=== PATIENT | male | born 1930 | race Caucasian/White ===

== ENCOUNTER 2017-09-28 09:59 | Inpatient (IN) | payer OTHER, BC ==
[~2017-09-28] VITALS: Ht 175.3 cm; Wt 111.9 kg
--- NOTE | ~2017-09-28 | EKG ---
[place] [address] [facility] [place] [address] ELECTROCARDIOGRAM REPORT Name: MELA MORGAN Room #: 218-P ADM IN M.R.#: [id number] Admission: 09/28/17 Attend Phys: Haile Kurtz MD, Discharge: Date of : 32 Report #: [id number] THIS REPORT FOR: //name// [facility] ED Test Date: 2017-09-28 Test Time: 11:06:08 Pat Name: MELA MORGAN Department: Room: 218 Gender: M Collaborating Supervising Physician: Leslie CHAMPION : 1930 Requested By: Owen Chow Order Number: [id number] MD: Abimael Marsh Measurements Intervals [place] Rate: 69 P: 38 SD: 208 QRS: 11 QRSD: 96 T: 42 QT: 443 QTc: 475 Interpretive Statements Sinus rhythm Borderline T abnormalities, lateral leads Baseline wander in lead(s) V5 Compared to ECG 08/03/2009 10:25:44 T-wave abnormality now present Electronically Signed On 09-29-2017 12:57:29 CDT by Abimael Marsh [email or web address] <ELECTRONICALLY SIGNED> By: Abimael Marsh MD, [facility] 09/29/17 1257 1106 1106 Abimael Marsh MD, [facility] /EPI
--- NOTE | ~2017-09-28 | 2DMMODE ---
[facility] [address] [place] [address] 2 D/M-MODE ECHOCARDIOGRAM Name: MELA MORGAN Room #: 218-P ADM IN M.R.#: [id number] Admission: 09/28/17 Attend Phys: Haile Kurtz, Discharge: Date of : 32 Date of Service: 09/30/17 1042 Report #: [id number] THIS REPORT FOR: //name// APPROVED REPORT Study performed: 09/30/2017 08:01:35 EXAM: Comprehensive 2D, Doppler, and color-flow Echocardiogram Patient Location: Bedside Room #: 218 Status: routine BSA: 2.26 HR: 74 bpm BP: 132/56 mmHg Other Information Study Quality: Adequate Technically limited study due to body habitus. Indications Congestive Heart Failure Diabetes Dyspnea CAD Hypertension/HDD Echo Enhancing Agent Agent(s) / Amount(s) Used: Optison 3 cc 2D Dimensions RVDd: 42.43 mm LVEF(%): 65.14 (>50%) IVSd: 18.10 (7-11mm) LVOT Diam: 20.01 (18-24mm) LVDd: 44.60 mm PWd: 15.54 (7-11mm) Ascending Ao: 35.24 (22-36mm) LVDs: 28.76 (25-40mm) Aortic Root: 35.95 mm IVC: 25.00 mm Zapata's LVEF: 65.14 % Volumes Left Atrial Volume (Systole) Single Plane 4CH: 78.15 mL Single Plane 2CH: 100.44 mL LA ESV Index: 45.00 mL/m2 Aortic Valve [facility] [address] [place] [address] 2 D/M-MODE ECHOCARDIOGRAM Name: MELA MORGAN Room #: 218-P [facility] IN M.R.#: [id number] Admission: 09/28/17 Attend Phys: Haile Kurtz, Discharge: Date of : 32 Date of Service: 09/30/17 1042 Report #: [id number] AoV Peak Lino.: 4.37 m/s AO Peak Gr.: 76.45 mmHg LVOT Max P.89 mmHg AO Mean Gr.: 44.45 mmHg LVOT Mean P.37 mmHg AO V2 Mean: 3.14 m/s LVOT Max V: 1.11 m/s AO V2 VTI: 107.73 cm LVOT Mean V: 0.69 m/s MILIND (VTI): 0.81 cm2 LVOT V1 VTI: 27.67 cm MILIND Vmax: 0.79 cm2 SV (LVOT): 86.96 mL Mitral Valve MV Peak Gr.: 15.16 mmHg MV Mean Gr.: 4.72 mmHg E/A Ratio: 1.0 MV Decel. Time: 305.54 ms MV E Max Lino.: 1.67 m/s MV A Lino.: 1.60 m/s MV Max Lino.: 1.95 m/s MV Mean Lino.: 0.96 m/s MV VTI: 618.78 mm MVA VTI: 140.53 mm2 MV PHT: 88.61 ms MVA (PHT): 2.18 cm2 Pulmonary Valve PV Peak Lino.: 0.96 m/s PV Peak Gr.: 3.71 mmHg Pulmonary Vein P Vein S: 0.55 m/s P Vein A: 0.23 m/s P Vein D: 0.44 m/s P Vein A Dur.: 114.2 msec P Vein S/D Ratio: 1.25 Tricuspid Valve RAP Estimate: 10.00 mmHg Left Ventricle The left ventricle is normal size. Moderate to severe concentric left ventricular hypertrophy. The left ventricular systolic function is normal. The left ventricular ejection fraction is within the normal range. LVEF is 60-65%. Moderate diastolic dysfunction is present (pseudonormal filling). Right Ventricle Right ventricle is at the upper limits of normal. The right ventricular systolic function is normal. Atria Left atrium is dilated. The right atrium size is normal. [facility] [address] [place] [address] 2 D/M-MODE ECHOCARDIOGRAM Name: MELA MORGAN Room #: 218-P [facility] IN M.R.#: [id number] Admission: 09/28/17 Attend Phys: Haile Kurtz, Discharge: Date of : 32 Date of Service: 09/30/17 1042 Report #: [id number] Aortic Valve Aortic valve is calcified. No aortic regurgitation is present. There is severe valvular aortic stenosis. Calculated aortic valve area is 0.8 cm2 with maximum pressure gradient of 76.5 mmHg and mean pressure gradient of 44.5 mmHg. Mitral Valve Moderate mitral annular calcification. Mitral valve leaflets are thickened. Mild mitral regurgitation. Mild mitral valve stenosis with a calculated mitral valve area is 2.2 cm2 with maximum pressure gradient of 15 mmHg and mean pressure gradient of 4.7 mmHg. Tricuspid Valve The tricuspid valve is normal in structure. Trace tricuspid regurgitation. Unable to assess PA pressure. Pulmonic Valve The pulmonary valve is normal in structure. Trace pulmonic regurgitation. Great Vessels The aortic root is normal in size. IVC is dilated and collapses >50% with inspiration. Pericardium There is no pericardial effusion. <Conclusion> The left ventricle is normal size. Moderate to severe concentric left ventricular hypertrophy. LVEF is 60-65%. Moderate diastolic dysfunction is present (pseudonormal filling). Right ventricle is at the upper limits of normal. Left atrium is dilated. Aortic valve is calcified. There is severe valvular aortic stenosis. Calculated aortic valve area is 0.8 cm2 with maximum pressure gradient of 76.5 mmHg and mean pressure gradient of 44.5 mmHg. Moderate mitral annular calcification. Mitral valve leaflets are thickened. Mild mitral regurgitation. Trace tricuspid regurgitation. [facility] [address] [place] [address] 2 D/M-MODE ECHOCARDIOGRAM Name: MELA MORGAN Room #: 218-P [facility] IN M.R.#: [id number] Admission: 09/28/17 Attend Phys: Haile Kurtz, Discharge: Date of : 32 Date of Service: 09/30/17 104 Report #: [id number] Unable to assess PA pressure. There is no pericardial effusion. <ELECTRONICALLY SIGNED> By: Haile Kurtz MD, FACC 09/30/17 104 41 104 Haile Kurtz MD, FACC /INF
[2017-09-28 10:00] VITALS: BP 131/77
[2017-09-28] MEDS ORDERED: CENTRUM SILVER1 EAC4 PO (10:36)
[2017-09-28] MEDS ORDERED: SYNTHROID50 MCG PO (10:36)
[2017-09-28] MEDS ORDERED: NORVASC5 MG PO (10:36)
[2017-09-28] MEDS ORDERED: POTASSIUM20 PO (10:37)
[2017-09-28] MEDS ORDERED: MAG-TAB SR84 MG PO (10:37)
[2017-09-28] MEDS ORDERED: ZINC CHELATE50 MG PO (10:37)
[2017-09-28] MEDS ORDERED: NIACIN 500 MG500 M1 PO (10:37)
[2017-09-28] MEDS ORDERED: FISH OIL 1,001000 M2 PO (10:37)
[2017-09-28] MEDS ORDERED: COREG25 MG PO (10:37)
[2017-09-28] MEDS ORDERED: LISINOPRIL20 MG PO (10:38)
[2017-09-28] MEDS ORDERED: ZOCOR20 MG PO (10:38)
[2017-09-28] MEDS ORDERED: NOVALOG IM (10:39)
[2017-09-28] MEDS ORDERED: LANTUS100 UNIT/M SUBQ (10:39)
[2017-09-28 10:45] LABS: ABSOLUTE NEUTROPHILS 5.9 thou/uL (1.4-8.2); BASOPHILS 0.8 % (0.0-2.0); EOSINOPHILS 2.5 % (0.0-3.0); HEMATOCRIT 47.5 % (42.0-52.0); HEMOGLOBIN 15.9 gm/dL (14.0-18.0); LYMPHOCYTES 20.4 % (24.0-44.0); MCH 30.2 pg (26.0-34.0); MCHC 33.4 g/dL (28.0-37.0); MCV 90.3 fL (80.0-100.0); MONOCYTES 6.3 % (1.0-8.0); PLATELET COUNT 132 thou/uL (150-400); RBC 5.27 mil/uL (4.50-6.00); RDW 15.9 % (10.5-14.5); WBC 8.4 thou/uL (4.0-11.0)
[2017-09-28 10:53] LABS: ANION GAP 7 mmol/L (7-16); BUN 17 mg/dL (7-18); CALCIUM 8.8 mg/dL (8.5-10.1); CHLORIDE 102 mmol/L (98-107); CO2 29 mmol/L (21-32); CREATININE 0.8 mg/dL (0.7-1.3); GLUCOSE 205 mg/dL (74-106); POTASSIUM 4.7 mmol/L (3.5-5.1); SODIUM 138 mmol/L (136-145)
[2017-09-28 11:02] LABS: ALBUMIN 3.5 g/dL (3.4-5.0); SGOT 27 U/L (15-37); SGPT 28 U/L (30-65); TOTAL BILIRUBIN 1.4 mg/dL (<0.1-1.0); TOTAL PROTEIN 7.3 g/dL (6.4-8.2); TROPONIN-I < 0.04 ng/mL (<0.06)
[2017-09-28 12:29] VITALS: BP 131/77
[2017-09-28 14:37] VITALS: BP 145/84
[2017-09-28 15:22] VITALS: BP 139/76
[2017-09-28 16:05] LABS: CALCIUM 8.6 mg/dL (8.5-10.1); CREATININE 0.8 mg/dL (0.7-1.3); MAGNESIUM 1.8 mg/dL (1.8-2.4); POTASSIUM 4.2 mmol/L (3.5-5.1)
[2017-09-28 19:33] VITALS: BP 149/85
[2017-09-29 00:16] VITALS: BP 97/43
[2017-09-29 04:59] VITALS: BP 145/82
[2017-09-29 09:00] VITALS: BP 137/72
[2017-09-29 11:01] LABS: HEMOGLOBIN 15.6 gm/dL (14.0-18.0); MCH 29.7 pg (26.0-34.0); MCHC 33.2 g/dL (28.0-37.0); MCV 89.3 fL (80.0-100.0); RBC 5.26 mil/uL (4.50-6.00); RDW 15.9 % (10.5-14.5); WBC 8.5 thou/uL (4.0-11.0)
[2017-09-29 11:10] LABS: CALCIUM 8.6 mg/dL (8.5-10.1); CREATININE 0.9 mg/dL (0.7-1.3)
[2017-09-29 13:52] VITALS: BP 120/72
[2017-09-29 17:30] VITALS: BP 144/82
[2017-09-29 19:17] VITALS: BP 137/73
[2017-09-30 04:31] LABS: CALCIUM 8.8 mg/dL (8.5-10.1); CREATININE 0.7 mg/dL (0.7-1.3); POTASSIUM 4.3 mmol/L (3.5-5.1)
[2017-09-30 04:50] VITALS: BP 132/56
[2017-09-30 10:42] VITALS: BP 101/56
[2017-09-30 15:49] VITALS: BP 111/65
[2017-09-30 19:35] VITALS: BP 111/65
[2017-09-30 19:49] VITALS: BP 128/66
[2017-10-01 04:17] VITALS: BP 128/76
[2017-10-01 05:49] LABS: CALCIUM 8.8 mg/dL (8.5-10.1); CREATININE 0.7 mg/dL (0.7-1.3); POTASSIUM 4.2 mmol/L (3.5-5.1)
[2017-10-01 07:00] VITALS: BP 111/56
[2017-10-01 11:38] VITALS: BP 115/67
[2017-10-01 15:54] VITALS: BP 107/54
[2017-10-01 19:47] VITALS: BP 133/67
[2017-10-02 04:32] LABS: CALCIUM 8.6 mg/dL (8.5-10.1); CREATININE 0.9 mg/dL (0.7-1.3); POTASSIUM 3.9 mmol/L (3.5-5.1)
[2017-10-02 05:04] VITALS: BP 125/63
[2017-10-02] MEDS ORDERED: DEMADEX20 MG PO (08:03)
[2017-10-02 08:04] VITALS: BP 120/61
[2017-10-02] MEDS ORDERED: LISINOPRIL20 MG PO (08:05)
[2017-10-02 10:32] VITALS: BP 111/65
[2017-10-02 11:38] VITALS: BP 129/66
[2017-10-02 11:41] VITALS: BP 111/65
== END 2017-10-02 14:00 | disposition home health service (06) | DRG 291 ==
LOC: ER 09:59 → 2N 12:13 → EROBS 12:13 → 2N 14:04 → ENTRNSPT 10-02 12:41 → EDTRNSPTSTS 10-02 12:44 → 2N 10-02 14:00
PROVIDERS: Emergency Medicine; Internal Medicine Cardiovascular Disease
PROC: B24BZZ4 Ultrasonography of Heart with Aorta, Transesophageal (ICD-10-PCS; principal; 2017-09-30)
DX: I11.0 Hypertensive heart disease with heart failure (principal); J96.21 Acute and chronic respiratory failure with hypoxia; I50.21 Acute systolic (congestive) heart failure; H40.9 Unspecified glaucoma; M19.90 Unspecified osteoarthritis, unspecified site; Z96.642 Presence of left artificial hip joint; E11.9 Type 2 diabetes mellitus without complications; E78.00 Pure hypercholesterolemia, unspecified; Z96.1 Presence of intraocular lens; I35.0 Nonrheumatic aortic (valve) stenosis; E66.9 Obesity, unspecified; Z68.36 Body mass index [BMI] 36.0-36.9, adult; Z98.42 Cataract extraction status, left eye; Z98.41 Cataract extraction status, right eye; Z90.49 Acquired absence of other specified parts of digestive tract; Z79.4 Long term (current) use of insulin; Z79.899 Other long term (current) drug therapy; Z88.5 Allergy status to narcotic agent; Z88.8 Allergy status to other drugs, medicaments and biological substances; Z91.018 Allergy to other foods; Z82.49 Family history of ischemic heart disease and other diseases of the circulatory system
CPT/HCPCS: 10194

== ENCOUNTER 2018-11-13 10:02 | Observation (INO) | payer OTHER, BC ==
[~2018-11-13] VITALS: Ht 180.3 cm; Wt 103.5 kg
[~2018-11-13 10:02] MED LIST: CENTRUM SILVER1 EAC4 PO; COREG25 MG PO; DEMADEX20 MG PO; FISH OIL 1,001000 M2 PO; LANTUS100 UNIT/M SUBQ; LISINOPRIL20 MG PO; MAG-TAB SR84 MG PO; NIACIN 500 MG500 M1 PO; NORVASC5 MG PO; NOVALOG IM; POTASSIUM20 PO; SYNTHROID50 MCG PO; ZINC CHELATE50 MG PO; ZOCOR20 MG PO
[2018-11-13 10:48] VITALS: BP 144/72
[2018-11-13] MEDS ORDERED: FISH OIL 1,001000 M2 PO (11:15)
[2018-11-13] MEDS ORDERED: XALATAN2.5 ML OPHTHALMIC (11:16)
[2018-11-13] MEDS ORDERED: TIMOLOL GL0.5 %/5 M1 OPHTHALMIC (11:17)
[2018-11-13 14:00] VITALS: BP 153/118
--- NOTE | 2018-11-13 16:15 | EKG ---
[address] [address] ELECTROCARDIOGRAM REPORT Name: MELA MORGAN Room #: 218-P [facility] M.R.#: [id number] ������������������ Admission: 11/13/18 ������������������ Attend Phys: Haile Kurtz MD, Discharge: ������������������ Date of : 32 Report #: [id number] ����������������������������������������������������������������� [id number] THIS REPORT FOR: //name// [facility] Test Date: 2018-11-13 Test Time: 10:44:06 Pat Name: MELA MORGAN Department: Room: 218 Gender: M Information Clerk Brokerage: PASTORA : 1930 Requested By: Haile Kurtz Order Number: [id number] MD: Ahmet Uribe Measurements Intervals [place] Rate: 76 P: 5 RI: 229 QRS: -8 QRSD: 105 T: 37 QT: 439 QTc: 494 Interpretive Statements Sinus rhythm Prolonged RI interval Probable left ventricular hypertrophy Inferior infarct, old Compared to ECG 09/28/2017 11:06:08 First degree AV block now present Myocardial infarct finding now present T-wave abnormality no longer present Electronically Signed On 11-13-2018 16:15:06 CDT by Ahmet Uribe [email or web address] ��������������������������������������������� <ELECTRONICALLY SIGNED> ���������������������������������������� By: Ahmet Uribe MD ��������������������������������������������� 11/13/18 1615 1044 1044 Ahmet Uribe MD /EPI
--- NOTE | 2018-11-13 17:14 | CATHLAB ---
[facility] [employer] [place] [address] INVASIVE PROCEDURE REPORT Name: LAURA MORGANRYAN Lester Room #: 218-P [facility] IN [facility]#: [id number] ������������� Admission: 11/13/18 ������������� Attend Phys: Haile Kurtz, Discharge: ��� ������������� ��� Date of : 34 Date of Service: 11/13/18 1714 �� Report #: [id number] �������� ��������������������������������������������[id number] THIS REPORT FOR: //name// APPROVED REPORT Study performed: 11/13/2018 12:27:11 Patient Details The patient is a 88 year-old male Event Personnel Haile Kurzt White Lead Filterer, Arron Fabian RN, Miguelina Suresh, Patricia Mccoy Monitor Procedures Performed Right Heart Catheterization, Coronary Angiography Supravalvular Aortography Injection 3520578 ISVA Renal Bilateral Peripheral Angiography [id number] CVRENALBIL Indication Chest pain Procedure Narrative The Right Groin^ was infiltrated with 1% Lidocaine subcutaneous anesthesia. A Right Heart Catheterization was performed with a 7 Fr. [place]-Sebastian catheter and pressure were recorded. Cardiac outputs were obtained by the Thermal Dilution method. A PINNACLE 6FR Sheath #[id number] sheath was inserted into the RFA^. Coronary angiography was performed using coronary diagnostic catheters. The right coronary system was accessed and visualized with a JR4 catheter. The left coronary system was accessed and visualized with a JL4 catheter. An aortogram of the ascending aorta was performed. Closure device was deployed with a Fr MYNXGRIP 6/7F #[id number]. Hemostasis was obtained with manual pressure following sheath removal without any complications. The patient tolerated the procedure well and there were no complications associated with the procedure. There was no hematoma. Intraoperative Conscious Sedation Sedation start time: 1238 Case end Time: 1308 Versed 1 mg Fluoro Time: 5.47 minutes Dose: DAP 48712.00 cGycm2 1062 mGy [facility] [employer] [place] [address] INVASIVE PROCEDURE REPORT Name: MELA MORGAN Tayler Room #: 218-P [facility] IN M.R.#: [id number] ������������� Admission: 11/13/18 ������������� Attend Phys: Haile Kurtz, Discharge: ��� ������������� ��� Date of : 34 Date of Service: 11/13/18 1714 �� Report #: [id number] �������� ��������������������������������������������[id number] Contrast Type and Amount: Visipaque 90 ml Hemodynamics The right atrial mean pressure is 17 mmHg. The right ventricular pressure is 72/0 mmHg. The pulmonary artery pressure is 66/23 mmHg with a mean of 41 mmHg. The mean pulmonary capillary wedge pressure is 21 mmHg. The aortic pressure is 140/77 mmHg with a mean of 92 mmHg. The cardiac output using thermo method is 6.17 L/min. The cardiac index using thermo method is 2.69 L/min/m2. Conclusion #1 successful right heart catheterization with cardiac output by thermodilution. 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 #4 ostial LAD 30% with otherwise well-preserved vessel. #5 a large somewhat codominant circumflex with a separate ostium no occlusive disease #6 codominant right coronary with a mid vessel eccentric lesion of 50-60% in of smaller but preserved PDA somewhat codominant distribution mid distal PDA lesion small-caliber 60-70% #7 selective bilateral renal angiogram presents he's due to labile hypertension) revealing mild bilateral renal disease Recommendations and plan: A she was given IV Lasix. Significantly dyspneic in the catheterization lab. Will be admitted to the CCU for aggressive diuresis. CV surgical consultation regarding critical aortic valve stenosis. Valve was not crossed calculated 0.7 range by noninvasive Doppler consideration of open versus TAVR for aortic stenosis. ��������������������������������������������� <ELECTRONICALLY SIGNED> ���������������������������������������� By: Haile Kurtz MD, [facility] ��������������������������������������������� 11/13/181713 13 13 Haile Kurtz MD, FACC /INF
[2018-11-13 19:23] VITALS: BP 119/74
--- NOTE | 2018-11-13 19:57 | NUR ---
PATIENT FROM [employer] TEACH[employer] TO 218. NO INTERVENTION, DRESSING TO R GROIN WITH MYNX DRESSING, CDI. POST PROCEDURE VITALS IN PATIENTS CHART, VSS, ALERT AND ORIENTED, NO COMPLAINTS OF PAIN, WILL CONTINUE TO MONITOR
[2018-11-14 00:26] VITALS: BP 106/55
[2018-11-14 05:13] VITALS: BP 119/49
--- NOTE | 2018-11-14 05:13 | NUR ---
ASSUMED PT CARE AT 1900. VSS. PT A&0X4. ASSESSMENTS ARE CHARTED. PT RESTED WELL ALL NIGHT, NO COMPLAINTS OF PAIN OR DISCOMFORT. PT HAS BEEN NPO SINCE 0000 FOR JAVIER TODAY. CONSENT NOT SIGNED YET; NOT FOUND. PT IS STABLE. WILL CONTINUE TO MONITOR PER POC.
[2018-11-14 05:19] LABS: HEMATOCRIT 47.1 % (42.0-52.0); HEMOGLOBIN 15.9 gm/dL (14.0-18.0); MCH 30.6 pg (26.0-34.0); MCHC 33.8 g/dL (28.0-37.0); MCV 90.4 fL (80.0-100.0); RBC 5.2 mil/uL (4.50-6.00); RDW 14.9 % (10.5-14.5); WBC 9.7 thou/uL (4.0-11.0)
[2018-11-14 05:33] LABS: CALCIUM 8.5 mg/dL (8.5-10.1); CREATININE 1.3 mg/dL (0.7-1.3); POTASSIUM 4.3 mmol/L (3.5-5.1)
--- NOTE | 2018-11-14 08:29 | EKG ---
[place] [address] [facility] [place] [address] ELECTROCARDIOGRAM REPORT Name: MELA MORGAN Tayler Room #: 218-[facility] M.RGalo#: [id number] ������������������ Admission: 11/13/18 ������������������ Attend Phys: Haile Kurtz MD, Discharge: ������������������ Date of : 32 Report #: [id number] ����������������������������������������������������������������� [id number] THIS REPORT FOR: //name// [facility] Test Date: 2018-11-14 Test Time: 07:21:21 Pat Name: MELA MORGAN Department: Room: 218 P Gender: M Blast Furnace Supervisor: Leslie MORA : 1930 Requested By: Haile Kurtz Order Number: [id number] MD: Abimael Marsh Measurements Intervals [place] Rate: 73 P: 31 MA: 216 QRS: 6 QRSD: 111 T: 40 QT: 439 QTc: 484 Interpretive Statements Sinus rhythm Borderline prolonged MA interval Probable left ventricular hypertrophy Consider inferior infarct Baseline wander in lead(s) I,III,aVL,V2 Compared to ECG 11/13/2018 10:44:06 No significant changes Electronically Signed On 11-14-2018 8:29:14 CDT by Abimael Marsh [email or web address] ��������������������������������������������� <ELECTRONICALLY SIGNED> ���������������������������������������� By: Abimael Marsh MD, [facility] ��������������������������������������������� 11/14/18 0829 0 0 Abimael Marsh MD, [facility] /EPI
--- NOTE | 2018-11-14 08:42 | TEE ---
[facility] [address] [employer] [place] [address] TRANSESOPHAGEAL ECHOCARDIOGRAM Name: MELA MORGAN Room #: 218-P [facility] IN ..#: [id number] ������������� Admission: 11/13/18 ������������� Attend Phys: Haile Kurtz, Discharge: ��� ������������� ��� Date of : 34 Date of Service: 11/14/18 0841 �� Report #: [id number] �������� ��������������������������������������������[id number] THIS REPORT FOR: //name// APPROVED REPORT Study performed: 11/14/2018 07:45:42 EXAM: Comprehensive 2D, Doppler, and color-flow Echocardiogram Patient [facility]: [facility] Room #: 218 Status: routine BSA: 2.23 HR: 87 bpm BP: 119/49 mmHg Rhythm: NSR Other Information Study Quality: Adequate Indications Valvular disease Echo Enhancing Agent Indication: Rule out Shunt Agent(s) / Amount(s) Used: Agitated Saline 6 cc Procedure After obtaining informed consent, patient underwent transesophageal echo in the [employer]. Type of Sedation : Conscious Sedation Sedation was administered by Arron Fabian RN. Sedation was achieved intravenously with: Versed (1.5) Transesophageal probe was inserted and advanced into esophagus without difficulty by Abimael Marsh MD. The JAVIER was performed without complications. Throughout the procedure, the blood pressure, pulse oximetry, cardiac rhythm, and rate were monitored. The patient tolerated the procedure without adverse effects. Recovery from conscious sedation was uneventful and vital signs were stable. Left Ventricle The left ventricle is normal size. There is normal LV segmental wall motion. Left ventricular hypertrophy. Left ventricular systolic [facility] [address] [address] TRANSESOPHAGEAL ECHOCARDIOGRAM Name: MELA MORGAN Tayler Room #: 218-P [facility] IN [facility].#: [id number] ������������� Admission: 11/13/18 ������������� Attend Phys: Haile Kurtz, Discharge: ��� ������������� ��� Date of : 34 Date of Service: 11/14/18 0841 �� Report #: [id number] �������� ��������������������������������������������[id number] function is normal. LVEF is 60-65%. Right Ventricle The right ventricle is normal size. The right ventricular systolic function is normal. Atria Left atrium is dilated. No thrombus is visualized in the left atrium or appendage. No shunting noted with contrast bubble injection. The right atrium size is normal. Aortic Valve Aortic valve is heavily calcified. Trace aortic regurgitation. Severe aortic stenosis. Thoracic echo showed a peak gradient of 85mmHg and a mean of 61mmHg. MILIND of 0.7cm2. LVOT diameter 2.3 cm Mitral Valve Calcified anterior mitral leaflet and annulus creating restricted anterior leaflet motion. There is no mitral valve regurgitation noted. Moderate mitral stenosis with a mean gradient of 8mmHg, peak gradient 14.8mmHg. Tricuspid Valve The tricuspid valve is normal in structure. There is no tricuspid valve regurgitation noted. Pulmonic Valve The pulmonary valve is normal in structure. There is no pulmonic valvular regurgitation. Great Vessels The aortic root is normal in size. The ascending aorta is normal in size. IVC is normal in size and collapses >50% with inspiration. Pericardium There is no pericardial effusion. Critical Notification Critical Value: Yes Physician Notified Date: 11/14/2018 <Conclusion> Left ventricular systolic function is normal. Left ventricular hypertrophy. [facility] [address] [place] [address] TRANSESOPHAGEAL ECHOCARDIOGRAM Name: MELA MORGAN Room #: 218-P [facility] IN [facility]#: [id number] ������������� Admission: 11/13/18 ������������� Attend Phys: Haile Kurtz, Discharge: ��� ������������� ��� Date of : 34 Date of Service: 11/14/18 0841 �� Report #: [id number] �������� ��������������������������������������������[id number] There is normal LV segmental wall motion. LVEF 60-65%. Left atrium is dilated. No shunting by contrast bubble injection No thrombus is visualized in the left atrium or appendage. Aortic valve is heavily calcified. Severe aortic stenosis. Thoracic echo: Peak gradient of 85mmHg, mean of 61mmHg. MILIND of 0.7cm2. LVOT diameter 2.3 cm Calcified anterior mitral leaflet and annulus creating restricted anterior leaflet motion. No mitral valve regurgitation noted. Moderate mitral stenosis (Mean gradient of 8mmHg, peak gradient 14.8mmHg). There is no pericardial effusion. ��������������������������������������������� <ELECTRONICALLY SIGNED> ���������������������������������������� By: Abimael Marsh MD, [facility] ��������������������������������������������� 05/840 0 0 Abimael Marsh MD, [facility] /INF
--- NOTE | 2018-11-14 09:01 | NUR ---
PT ALERT AND ORIENTED. VSS. NO C/O PAIN OR SOA SWALLOWS WELL. RETURNED TO ROOM STABLE CONTDITION. REPORT TO MARIA C RUIZ.
[2018-11-14 09:36] VITALS: BP 119/49
[2018-11-14 09:53] VITALS: BP 138/75
--- NOTE | 2018-11-14 11:00 | NUR ---
PATIENT RETURNED FROM IR AFTER JAVIER, VSS, ALERT AND ORIENTED X 4, NO COMPLAINTS OF PAIN. PATIENT DISCHARGED TO HOME. DISCHARGE INSTRUCTIONS GIVEN, PATIENT STATED UNDERSTANDING.
--- NOTE | 2018-11-17 10:39 | HC ---
[facility] [place] [address] CONSULTATION Name: MELA MORGAN Tayler Room #: 218-P [facility] Kylie Yang#: [id number] Admission: 11/13/18 ������������������ Attend Phys: Haile Kurtz MD, Discharge: 11/14/18 ������������������ Date of : 32 Report #: [id number] THIS REPORT FOR: //name// CC: [facility] physician/PCP Haile Kurtz DATE OF SERVICE: 11/13/2018 We were asked by Dr. Kurtz to see the patient. The patient is an 88-year-old with aortic valve stenosis. The patient presents with a 6-month decline characterized by progressive shortness of breath with lower and lower levels of exertion. The patient denies having angina to me. We note that cardiac catheterization today shows no major coronary artery disease. The worst lesion appears to be a right coronary lesion that may be of 50% stenosis. There is 20% lesions in the circumflex and LAD systems. Left ventricular function was not evaluated with a ventriculogram, but cardiac echo earlier this month showed an ejection fraction of 60% and a valve area of 0.7 cm2. Today pulmonary artery pressure was measured to be 70/23 with a mean wedge of 22 and aortic valve was calcified. PAST MEDICAL HISTORY: Significant for hypertension and diabetes mellitus. The patient has had colon cancer surgery in 2006 and he has had other operations including cholecystectomy, lumbar spine surgery, total hip replacement bilaterally and according to the films, he had had radiation seed for the prostate. ALLERGIES: CHOCOLATE, MEPERIDINE AND PROPOXYPHENE. HOME MEDICATIONS: Include simvastatin, fish oil, niacin, Norvasc, magnesium, torsemide, eye drops of timolol and latanoprost, insulin, Synthroid, potassium. SOCIAL HISTORY: The patient is a never smoker. 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 REVIEW OF SYSTEMS: CONSTITUTIONAL: Admits to fatigue and sleep problems. 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 Denies headache, vision problems, sinus issues. RESPIRATORY: Admits to shortness of breath and dyspnea on exertion. Denies wheeze and cough. CARDIAC: Denies chest pain, palpitations. SKIN: Denies rash or infection. [facility] [address] [place] [address] CONSULTATION Name: MELA MORGAN Room #: 218-P [facility] Kylie Yang#: [id number] Admission: 11/13/18 ������������������ Attend Phys: Haile Kurtz MD, Discharge: 11/14/18 ������������������ Date of : 34 Report #: [id number] ENDOCRINE: Denies tremor or goiter. GASTROINTESTINAL: Denies nausea, vomiting, blood in stool. GENITOURINARY: Admits to frequency, denies hematuria. 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 Denies motor problems. Denies seizures. PSYCHIATRIC: Admits to anxiety. Denies depression and hallucination. 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 Denies claudication. IMMUNOLOGIC: Denies lupoid rash, rheumatoid arthritides, uses a walker for his balance problems. PHYSICAL EXAMINATION: VITAL SIGNS: Blood pressure 144/72, heart rate 78, respiratory rate 20, temperature 36.1. 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 Normocephalic. Pupils are equal, round, reactive. Conjugate gaze. No icterus, no arcus. NECK: No mass, no cervical bruit. There is a transmitted bruit from the chest. CHEST: Clear to auscultation. HEART: Rhythm regular with aortic systolic murmur that radiates to the neck. ABDOMEN: Soft, no mass, no tenderness. EXTREMITIES: Trace edema distally. No cyanosis. We note a small lesion at the tip of the right great toe due to trauma. 2+ dorsalis pedis and posterior tibial pulses. No obvious saphenous vein problems. MUSCULOSKELETAL: No bone or joint asymmetry or deformity visible. No motor or sensory dysfunction seen. PSYCHIATRIC: Shows insight into problem and is responsive and pleasant. I reviewed the problem of aortic stenosis with the patient. If the patient is going to do as well as he can for as long as he can, it will involve some sort of valve replacement. I compared and contrasted open aortic valve surgery with transarterial valve replacement. Risks and details of each were discussed. Options and alternatives were reviewed. The patient appears to favor transarterial and for social issues, this may have something to be preferred as the patient lives alone and uses a walker. I will discuss with Dr. Kurtz. Thank you for the consult. ��������������������������������������������� <ELECTRONICALLY SIGNED> ���������������������������������������� By: Donavon Matthews MD ��������������������������������������������� 11/17/18 1039 1556 0650 Donavon Matthews MD /nt
== END 2018-11-14 10:49 | disposition home or self-care (01) ==
LOC: CATH 10:02 → 2N 14:08 → ENTRNSPT 11-14 10:38 → EDTRNSPTSTS 11-14 10:43 → 2N 11-14 10:49
PROVIDERS: Nurse Practitioner Gerontology; ADMIT Internal Medicine Cardiovascular Disease
DX: I25.10 Atherosclerotic heart disease of native coronary artery without angina pectoris (principal); I35.0 Nonrheumatic aortic (valve) stenosis; I11.0 Hypertensive heart disease with heart failure; I50.43 Acute on chronic combined systolic (congestive) and diastolic (congestive) heart failure; E11.9 Type 2 diabetes mellitus without complications; E78.5 Hyperlipidemia, unspecified; Z88.8 Allergy status to other drugs, medicaments and biological substances; Z91.048 Other nonmedicinal substance allergy status; Z85.038 Personal history of other malignant neoplasm of large intestine; Z98.890 Other specified postprocedural states

== ENCOUNTER 2018-11-30 17:35 | Emergency (ER) | payer OTHER, BC ==
[~2018-11-30] VITALS: Ht 175.3 cm; Wt 88.5 kg
[~2018-11-30 17:35] MED LIST changes: +TIMOLOL GL0.5 %/5 M1 OPHTHALMIC; +XALATAN2.5 ML OPHTHALMIC
[2018-11-30 19:17] LABS: URINE BLOOD 3+ (Negative); URINE GLUCOSE-RANDOM* NEGATIVE (Negative); URINE KETONES NEGATIVE (Negative); URINE LEUKOCYTES-REFLEX TRACE (Negative); URINE NITRITE-REFLEX NEGATIVE (Negative); URINE PROTEIN (DIPSTICK) 3+ (Negative); URINE UROBILINOGEN 0.2 E.U./dl (0.2-1.0)
[2018-11-30 19:18] LABS: ICTOTEST (BILI CONFIRMATORY) Negative (Negative); URINE BILIRUBIN NEGATIVE (Negative); URINE CLARITY CLOUDY; URINE COLOR RED
[2018-11-30 19:23] LABS: CASTS None Seen /LPF (None Seen); CRYSTALS None Seen /LPF (None Seen); SQUAMOUS None Seen /LPF (0-3); URINE RBC >20 Many /HPF (0-2); URINE WBC-REFLEX 6-15 Few /HPF (0-5)
[2018-11-30 19:34] LABS: ABSOLUTE NEUTROPHILS 6.6 thou/uL (1.4-8.2); BASOPHILS 1.6 % (0.0-2.0); EOSINOPHILS 2.6 % (0.0-3.0); HEMATOCRIT 44.1 % (42.0-52.0); HEMOGLOBIN 15.1 gm/dL (14.0-18.0); LYMPHOCYTES 23.2 % (24.0-44.0); MCH 30.8 pg (26.0-34.0); MCHC 34.3 g/dL (28.0-37.0); MCV 89.9 fL (80.0-100.0); MONOCYTES 8.7 % (1.0-8.0); PLATELET COUNT 156 thou/uL (150-400); POLYS 63.9 % (36.0-66.0); RBC 4.91 mil/uL (4.50-6.00); RDW 15.1 % (10.5-14.5); WBC 10.4 thou/uL (4.0-11.0)
[2018-11-30 19:41] LABS: CALCIUM 8.6 mg/dL (8.5-10.1); CREATININE 1.3 mg/dL (0.7-1.3)
[2018-11-30 21:20] VITALS: BP 127/74
[2018-11-30] MEDS ORDERED: KEFLEX500 M1 PO (21:42)
== END 2018-11-30 21:22 | disposition home or self-care (01) ==
LOC: ER 17:35
PROVIDERS: Emergency Medicine; Nurse Practitioner
DX: R33.9 Retention of urine, unspecified (principal); R31.9 Hematuria, unspecified; R82.71 Bacteriuria; I10 Essential (primary) hypertension; E11.9 Type 2 diabetes mellitus without complications; Z90.49 Acquired absence of other specified parts of digestive tract; Z98.890 Other specified postprocedural states; Z96.642 Presence of left artificial hip joint; Z86.010 Personal history of colon polyps; Z79.4 Long term (current) use of insulin; Z79.899 Other long term (current) drug therapy; Z88.5 Allergy status to narcotic agent; Z88.8 Allergy status to other drugs, medicaments and biological substances; Z91.018 Allergy to other foods

== ENCOUNTER 2019-01-06 01:02 | Emergency (ER) | payer OTHER, BC ==
[~2019-01-06] VITALS: Ht 175.3 cm; Wt 88.5 kg
[~2019-01-06 01:02] MED LIST changes: +KEFLEX500 M1 PO
[2019-01-06 04:29] LABS: HEMATOCRIT 41.9 % (42.0-52.0); HEMOGLOBIN 14.5 gm/dL (14.0-18.0); MCH 29.7 pg (26.0-34.0); MCHC 34.5 g/dL (28.0-37.0); MCV 85.9 fL (80.0-100.0); RBC 4.87 mil/uL (4.50-6.00); RDW 14.5 % (10.5-14.5); WBC 11.1 thou/uL (4.0-11.0)
[2019-01-06 04:38] LABS: CALCIUM 9.2 mg/dL (8.5-10.1); CREATININE 1.4 mg/dL (0.7-1.3); POTASSIUM 3.6 mmol/L (3.5-5.1)
[2019-01-06 04:44] LABS: APTT 27.8 Seconds (24.5-32.8); INR 1.1
[2019-01-06 04:49] LABS: URINE BILIRUBIN NEGATIVE (Negative); URINE BLOOD 3+ (Negative); URINE CLARITY TURBID; URINE COLOR RED; URINE GLUCOSE-RANDOM* TRACE (Negative); URINE KETONES 1+ (Negative); URINE PROTEIN (DIPSTICK) 3+ (Negative); URINE UROBILINOGEN >= 8.0 E.U./dl (0.2-1.0)
[2019-01-06 04:50] LABS: URINE LEUKOCYTES-REFLEX 3+ (Negative); URINE NITRITE-REFLEX POSITIVE (Negative)
[2019-01-06 05:09] LABS: SQUAMOUS 4-10 Moderate /LPF (0-3)
[2019-01-06 05:10] LABS: CASTS None Seen /LPF (None Seen); CRYSTALS None Seen /LPF (None Seen); MUCUS 4-6 Moderate strn/LPF (None Seen); URINE RBC >20 Many /HPF (0-2); URINE WBC-REFLEX 6-15 Few /HPF (0-5); WBC CLUMPS Few (None Seen)
[2019-01-06 08:26] VITALS: BP 134/73
== END 2019-01-06 08:28 | disposition short-term general hospital (02) ==
LOC: ER 01:02
PROVIDERS: Emergency Medicine
DX: N39.0 Urinary tract infection, site not specified (principal); R31.9 Hematuria, unspecified; R33.9 Retention of urine, unspecified; I10 Essential (primary) hypertension; M19.90 Unspecified osteoarthritis, unspecified site; E11.9 Type 2 diabetes mellitus without complications; Z88.8 Allergy status to other drugs, medicaments and biological substances; Z88.5 Allergy status to narcotic agent; Z91.018 Allergy to other foods; Z88.4 Allergy status to anesthetic agent; Z90.49 Acquired absence of other specified parts of digestive tract; Z96.642 Presence of left artificial hip joint; Z79.4 Long term (current) use of insulin